=== PATIENT | male | born 1940 | race Asian ===

== ENCOUNTER 2017-09-06 07:18 | Inpatient (IN) | payer MEDICAID, OTHER ==
[~2017-09-06] VITALS: Ht 167.6 cm; Wt 78.1 kg
[~2017-09-06 07:18] MED LIST: ALLO300T2 PO; AMLO5TAB4 PO; ATOR10TA69 PO; OMEP20TA2 PO
[2017-09-06] MEDS ORDERED: DSS100 PO (07:36)
[2017-09-06] MEDS ORDERED: PHOSLOC PO (07:36)
[2017-09-06] MEDS ORDERED: LORA10TA7 PO (07:36)
[2017-09-06] MEDS ORDERED: CHL25 PO (07:36)
[2017-09-06] MEDS ORDERED: ROPI0.255 PO (07:36)
[2017-09-06] MEDS ORDERED: FOLI1TAB85 PO (07:36)
[2017-09-06] MEDS ORDERED: COLC0.6T67 PO (07:36)
[2017-09-06] MEDS ORDERED: HYDR-4061 PO (07:36)
[2017-09-06] MEDS ORDERED: SODI650T PO (07:36)
[2017-09-06 09:28] LABS: BASOPHILS # (AUTO) 0.03 K/uL (0.00-0.20); BASOPHILS % (AUTO) 0.4 % (0.0-2.0); EOSINOPHILS # (AUTO) 0.11 K/uL (0.00-0.70); EOSINOPHILS % (AUTO) 1.67 % (1.0-6.0); HEMATOCRIT 28.1 % (41-53); HEMOGLOBIN 9.8 g/dL (13.5-17.5); LYMPHOCYTES # (AUTO) 1.7 K/uL (1.0-4.8); MEAN CORPUSCULAR HEMOGLOBIN 31.5 pg (26.0-34.0); MEAN CORPUSCULAR HGB CONC 34.9 G/dL (31.0-37.0); MEAN CORPUSCULAR VOLUME 90 fL (80-100); MONOCYTES # (AUTO) 0.7 K/uL (0.1-1.0); MONOCYTES % (AUTO) 9.8 % (2.0-9.0); NEUTROPHILS # (AUTO) 4.3 K/uL (1.8-7.7); NEUTROPHILS % (AUTO) 63.1 % (40.0-70.0); PLATELET COUNT (AUTO) 146 K/uL (150-450); RED BLOOD CELL COUNT(AUTO) 3.12 MIL/uL (4.50-5.90); RED CELL DISTRIBUTION WIDTH 11.9 % (11.5-14.5)
[2017-09-06 09:59] LABS: ALBUMIN 3.1 g/dL (3.4-5.0); BILIRUBIN,TOTAL 0.4 mg/dL (0.1-1.0); CALCIUM, TOTAL 6.9 mg/dL (8.8-10.5); CREATININE 11.22 mg/dL (0.60-1.30); POTASSIUM 4.2 mmol/L (3.5-5.1); TOTAL PROTEIN, SERUM 6.6 g/dL (6.4-8.2)
[2017-09-06] MEDS ORDERED: ACETAMINOPHEN 325 MG TABLET PO PRN ×2 (10:45→11:30)
[2017-09-06] MEDS ORDERED: 0.9% SODIUM CHLORIDE 10 ML SYRINGE IVP PRN (10:45)
[2017-09-06] MEDS ORDERED: ONDANSETRON HCL 4 MG/2 ML VIAL IVP PRN (11:30)
[2017-09-06] MEDS ORDERED: BISACODYL 10 MG RECTAL RECTAL SUPPOSITORY PR PRN (11:30)
[2017-09-06] MEDS ORDERED: ALBUTEROL SULFATE 2.5 MG/0.5 ML NEB SOLUTION NEB PRN (11:30)
[2017-09-06] MEDS ORDERED: CALCIUM ACETATE 667 MG CAPSULE PO ONE (12:45)
[2017-09-06 12:49] LABS: INFLUENZA TYPE A NEGATIVE FOR TYPE A (NEGATIVE); INFLUENZA TYPE B NEGATIVE FOR TYPE B (NEGATIVE)
[2017-09-06] MEDS: OxyCODONE HCL/ACETAMINOPHEN 5-325 MG TABLET PO PRN ×2 (14:27→20:33)
[2017-09-06 15:30] VITALS: BP 122/64
[2017-09-06] MEDS ORDERED: DIAZEPAM 5 MG TABLET PO PRN (16:45)
[2017-09-06 19:29] VITALS: BP 136/81
[2017-09-06] MEDS: DOCUSATE SODIUM 100 MG CAPSULE PO SCH (20:33)
[2017-09-06] MEDS: HEPARIN SODIUM,PORCINE 5,000 UNITS/ML VIAL SQ SCH (20:33)
[2017-09-07] VITALS (7 sets, daily range): BP systolic 109–137; BP diastolic 61–79
[2017-09-07 07:53] LABS: BASOPHILS % (AUTO) 0.4 % (0.0-2.0); EOSINOPHILS % (AUTO) 2.5 % (1.0-6.0); HEMATOCRIT 29.9 % (41-53); HEMOGLOBIN 10.4 g/dL (13.5-17.5); LYMPHOCYTES # (AUTO) 1.3 K/uL (1.0-4.8); LYMPHOCYTES % (AUTO) 31.6 % (22.0-44.0); MEAN CORPUSCULAR HGB CONC 34.8 G/dL (31.0-37.0); MEAN CORPUSCULAR VOLUME 92 fL (80-100); MONOCYTES # (AUTO) 0.5 K/uL (0.1-1.0); MONOCYTES % (AUTO) 10.9 % (2.0-9.0); NEUTROPHILS # (AUTO) 2.3 K/uL (1.8-7.7); NEUTROPHILS % (AUTO) 54.6 % (40.0-70.0); PLATELET COUNT (AUTO) 160 K/uL (150-450); RED BLOOD CELL COUNT(AUTO) 3.25 MIL/uL (4.50-5.90)
[2017-09-07] MEDS: HEPARIN SODIUM,PORCINE 5,000 UNITS/ML VIAL SQ SCH ×2 (08:43→20:36)
[2017-09-07] MEDS: VITAMIN B COMP/VIT C/FOLIC ACID CAPSULE PO SCH (08:44)
[2017-09-07] MEDS: ASPIRIN 81 MG CHEWABLE TABLET PO SCH (08:44)
[2017-09-07] MEDS: PANTOPRAZOLE SODIUM 40 MG DR TABLET PO SCH (08:44)
[2017-09-07] MEDS: CALCIUM ACETATE 667 MG CAPSULE PO SCH ×3 (08:44→18:01)
[2017-09-07] MEDS: AmLODIPine BESYLATE 5 MG TABLET PO SCH (08:44)
[2017-09-07] MEDS: DOCUSATE SODIUM 100 MG CAPSULE PO SCH ×2 (08:44→20:35)
[2017-09-07] MEDS ORDERED: AmLODIPine BESYLATE 10 MG TABLET PO SCH (09:00)
[2017-09-07 09:17] LABS: ALBUMIN 3.1 g/dL (3.4-5.0); BILIRUBIN,TOTAL 0.4 mg/dL (0.1-1.0); CALCIUM, TOTAL 7.7 mg/dL (8.8-10.5); CREATININE 11.71 mg/dL (0.60-1.30); POTASSIUM 4.3 mmol/L (3.5-5.1); TOTAL PROTEIN, SERUM 7.4 g/dL (6.4-8.2)
[2017-09-07] MEDS ORDERED: CALCIUM ACETATE 667 MG CAPSULE PO SCH (12:00)
[2017-09-07] MEDS: GABAPENTIN 100 MG CAPSULE PO SCH (12:28)
[2017-09-07] MEDS: VITAMIN E 400 UNITS CAPSULE PO SCH (12:31)
[2017-09-07] MEDS ORDERED: CYCLOBENZAPRINE HCL 10 MG TABLET PO PRN (20:15)
[2017-09-07] MEDS ORDERED: POLYETHYLENE GLYCOL 3350 17 GM PACKET PO ONE (21:00)
[2017-09-08 05:13] VITALS: BP 103/65
[2017-09-08 06:23] LABS: CALCIUM, TOTAL 7.7 mg/dL (8.8-10.5); CREATININE 11.66 mg/dL (0.60-1.30); POTASSIUM 3.8 mmol/L (3.5-5.1)
[2017-09-08 07:40] VITALS: BP 128/75
[2017-09-08] MEDS: GABAPENTIN 100 MG CAPSULE PO SCH (08:20)
[2017-09-08] MEDS: VITAMIN B COMP/VIT C/FOLIC ACID CAPSULE PO SCH (08:20)
[2017-09-08] MEDS: AmLODIPine BESYLATE 5 MG TABLET PO SCH (08:21)
[2017-09-08] MEDS: CALCIUM ACETATE 667 MG CAPSULE PO SCH ×2 (08:21→12:12)
[2017-09-08] MEDS: ASPIRIN 81 MG CHEWABLE TABLET PO SCH (08:21)
[2017-09-08] MEDS: PANTOPRAZOLE SODIUM 40 MG DR TABLET PO SCH (08:21)
[2017-09-08] MEDS: DOCUSATE SODIUM 100 MG CAPSULE PO SCH (08:21)
[2017-09-08] MEDS: HEPARIN SODIUM,PORCINE 5,000 UNITS/ML VIAL SQ SCH (08:22)
[2017-09-08] MEDS: VITAMIN E 400 UNITS CAPSULE PO SCH (08:22)
[2017-09-08] MEDS ORDERED: GABA-529 PO (10:39)
[2017-09-08] MEDS ORDERED: VITA400T9 PO (10:40)
[2017-09-08] MEDS ORDERED: CYCL10 PO (10:42)
[2017-09-08] MEDS ORDERED: DIAZ2 PO (10:43)
[2017-09-08 12:00] VITALS: BP 107/52
== END 2017-09-08 12:40 | disposition home or self-care (01) | DRG 425 ==
LOC: EMS 07:19 → 6N 13:14
PROVIDERS: ADMIT Internal Medicine; ATTEND Internal Medicine
DX: E87.1 Hypo-osmolality and hyponatremia (principal); N18.6 End stage renal disease; I12.0 Hypertensive chronic kidney disease with stage 5 chronic kidney disease or end stage renal disease; D63.1 Anemia in chronic kidney disease; I25.2 Old myocardial infarction; M10.9 Gout, unspecified; I25.10 Atherosclerotic heart disease of native coronary artery without angina pectoris; I45.10 Unspecified right bundle-branch block; E78.5 Hyperlipidemia, unspecified; R25.2 Cramp and spasm; Z99.2 Dependence on renal dialysis; Z88.8 Allergy status to other drugs, medicaments and biological substances; Z79.891 Long term (current) use of opiate analgesic; Z79.899 Other long term (current) drug therapy
CPT/HCPCS: 87081; 87340; 87804; 90945; 93005; 99285; J1644

== ENCOUNTER 2019-05-05 08:59 | Emergency (ER) | payer OTHER ==
[~2019-05-05] VITALS: Ht 167.6 cm; Wt 75.0 kg
[~2019-05-05 08:59] MED LIST changes: +ALLO100T PO; -ALLO300T2 PO; -AMLO5TAB4 PO; +AMLO5TAB9 PO; -ATOR10TA69 PO; +CALC25 PO; +DOCU250C90 PO; +FOLI1TAB85 PO; +GABA-529 PO; +OMEP20 PO; -OMEP20TA2 PO; +PHOSLOC PO; +SODI650T PO
[2019-05-05] MEDS ORDERED: ONDANSETRON HCL 4 MG TABLET PO ONE (10:00)
[2019-05-05] MEDS ORDERED: LOPERAMIDE HCL 2 MG CAPSULE PO ONE (10:00)
[2019-05-05 10:28] LABS: BASOPHILS % (AUTO) 0.2 % (0.0-2.0); EOSINOPHILS % (AUTO) 0.3 % (1.0-6.0); HEMATOCRIT 29.9 % (41-53); HEMOGLOBIN 9.8 g/dL (13.5-17.5); LYMPHOCYTES # (AUTO) 0.6 K/uL (1.0-4.8); LYMPHOCYTES % (AUTO) 10.5 % (22.0-44.0); MEAN CORPUSCULAR HGB CONC 32.7 G/dL (31.0-37.0); MEAN CORPUSCULAR VOLUME 95 fL (80-100); MONOCYTES # (AUTO) 0.6 K/uL (0.1-1.0); NEUTROPHILS # (AUTO) 4.7 K/uL (1.8-7.7); PLATELET COUNT (AUTO) 193 K/uL (150-450); RED BLOOD CELL COUNT(AUTO) 3.15 MIL/uL (4.50-5.90); RED CELL DISTRIBUTION WIDTH 18.5 % (11.5-14.5)
[2019-05-05 10:36] LABS: CALCIUM, TOTAL 9.3 mg/dL (8.8-10.5); CREATININE 13.88 mg/dL (0.60-1.30); POTASSIUM 3.4 mmol/L (3.5-5.1)
[2019-05-05 10:42] LABS: ALBUMIN 3.2 g/dL (3.4-5.0); BILIRUBIN,TOTAL 0.5 mg/dL (0.1-1.0); TOTAL PROTEIN, SERUM 7.3 g/dL (6.4-8.2)
[2019-05-05 12:20] VITALS: BP 134/82
== END 2019-05-05 12:15 | disposition home or self-care (01) ==
LOC: EMS 09:00
DX: N19 Unspecified kidney failure (principal); R19.7 Diarrhea, unspecified; I25.2 Old myocardial infarction; I10 Essential (primary) hypertension; E78.00 Pure hypercholesterolemia, unspecified; Z88.8 Allergy status to other drugs, medicaments and biological substances; Z79.899 Other long term (current) drug therapy
CPT/HCPCS: 36415; 80053; 85025; 99283; Q0162